=== PATIENT | female | born 1960 | race Native Hawaiian/Other Pacific Islander ===

== ENCOUNTER 2016-10-21 13:00 | Emergency (ER) | payer OTHER ==
[~2016-10-21] VITALS: Ht 157.5 cm; Wt 127.0 kg
[2016-10-21 13:05] VITALS: TEMP 97.7
[2016-10-21 16:30] VITALS: BP 128/89
== END 2016-10-21 16:31 | disposition home or self-care (01) ==
LOC: ED 13:00
DX: R23.8 Other skin changes (principal)

== ENCOUNTER 2018-06-07 04:56 | Emergency (ER) | payer OTHER ==
[~2018-06-07] VITALS: Ht 157.5 cm; Wt 127.0 kg
[2018-06-07 08:14] VITALS: BP 168/84; TEMP 97.9
== END 2018-06-07 08:23 | disposition home or self-care (01) ==
LOC: ED 04:56
DX: M51.36 Other intervertebral disc degeneration, lumbar region (principal); M81.8 Other osteoporosis without current pathological fracture; W10.8XXA Fall (on) (from) other stairs and steps, initial encounter; Y92.89 Other specified places as the place of occurrence of the external cause
CPT/HCPCS: 81000; 96372; 99283; J1885; J2175; J2405

== ENCOUNTER 2018-06-11 16:17 | Emergency (ER) | payer OTHER ==
[~2018-06-11] VITALS: Ht 157.5 cm; Wt 129.7 kg
[2018-06-11] MEDS ORDERED: K-TAB20 MEQ PO (16:38)
[2018-06-11] MEDS ORDERED: FURO40TA93 PO (16:39)
[2018-06-11] MEDS ORDERED: DEMADEX10 MG PO (16:40)
[2018-06-11] MEDS ORDERED: ALLO300T23 PO (16:40)
[2018-06-11] MEDS ORDERED: CELEXA20 MG PO (16:40)
[2018-06-11] MEDS ORDERED: LOPRESSOR100 MG PO (16:41)
[2018-06-11] MEDS ORDERED: AMITRIPTYLIN50 MG PO (16:41)
[2018-06-11] MEDS ORDERED: PREG75CA PO (16:41)
[2018-06-11] MEDS ORDERED: ADLT ASA LOW81 MG PO (16:42)
[2018-06-11] MEDS ORDERED: RANI150T78 PO (16:43)
[2018-06-11] MEDS ORDERED: ELIQUIS5 MG PO (16:43)
[2018-06-11] MEDS ORDERED: REQUIP0.25 MG PO (16:44)
[2018-06-11] MEDS ORDERED: SIMV10TA PO (16:45)
[2018-06-11] MEDS ORDERED: HYDR10TA47 PO (16:45)
[2018-06-11 18:09] LABS: PLATELET COUNT 189 K/uL (152-353)
[2018-06-11 18:23] LABS: POTASSIUM 3.7 mmol/L (3.6-5.2); SODIUM 144 mmol/L (136-145)
[2018-06-11 18:37] LABS: PARTIAL THROMBOPLASTIN TIME 30.1 SECONDS (24.5-33.6)
[2018-06-11 19:57] VITALS: BP 163/79; TEMP 98.5
== END 2018-06-11 19:57 | disposition home or self-care (01) ==
LOC: ED 16:17
PROVIDERS: Emergency Medicine
DX: M54.5 Low back pain (principal); R06.09 Other forms of dyspnea; R06.02 Shortness of breath; I45.19 Other right bundle-branch block
CPT/HCPCS: 36415; 80053; 83735; 83880; 84443; 84484; 85027; 85379; 85610; 85730; 87502; 93005; 99283

== ENCOUNTER 2020-07-19 11:51 | Outpatient (CLI) | payer OTHER ==
[~2020-07-19 11:51] MED LIST: ADLT ASA LOW81 MG PO; ALLO300T23 PO; AMITRIPTYLIN50 MG PO; CELEXA20 MG PO; DEMADEX10 MG PO; ELIQUIS5 MG PO; FURO40TA93 PO; HYDR10TA47 PO; K-TAB20 MEQ PO; LOPRESSOR100 MG PO; PREG75CA PO; RANI150T78 PO; REQUIP0.25 MG PO; SIMV10TA PO
== END 2020-07-19 22:14 | disposition home or self-care (01) ==
LOC: RAD 11:51
PROVIDERS: ATTEND Nurse Practitioner Family
DX: J18.9 Pneumonia, unspecified organism (principal)